=== PATIENT | male | born 1940 | race Caucasian/White ===

== ENCOUNTER → 2016-07-15 | Outpatient (CLI) | payer MEDICARE, BC ==
[~2016-07-15] MED LIST: ECOTRIN81 MG PO; LIPITOR40 MG PO; NUCYNTA50 MG PO; TYLENOL DPS325 MG PO
== END | disposition home or self-care (01) ==
LOC: PTH.S 12:14
DX: Z01.818 Encounter for other preprocedural examination (principal)

== ENCOUNTER 2016-07-20 05:36 | Inpatient (IN) | payer MEDICARE, BC ==
[~2016-07-20] VITALS: Ht 182.9 cm; Wt 85.1 kg
--- NOTE | ~2016-07-20 | OR ---
ADMIT: 07/20/2016 RM/LOC: 527 [facility] MR#: [id number] [address] [facility] [address] [place] [id number] [place] [address] [address] [address] Operative/Delivery Room Report SEX: M AGE: 76 : 1940 SURGERY DATE: 07/20/2016 SURGEON: Ashish Schroeder MD PREOPERATIVE DIAGNOSIS: Cecal cancer. POSTOPERATIVE DIAGNOSIS: Cecal cancer. FINAL PATHOLOGY: Pending. PROCEDURE: Laparoscopic right hemicolectomy. HALFTONE OPERATOR: Jacob Sanchez MD. Dr. Jacob Sanchez was necessary for adequate exposure, retraction, and completion of this case. ANESTHESIA: General endotracheal tube anesthesia. ESTIMATED BLOOD LOSS: 500 mL. INDICATION FOR PROCEDURE: Please see H and P. PROCEDURE IN DETAIL: After the risks, benefits, possible complications, and the alternatives had been explained, and informed consent had been obtained, the patient was taken back to the operating room, underwent general endotracheal tube anesthesia, and the surgical field was prepped and draped in a sterile manner. A supraumbilical incision was made. The Veress needle was inserted. The abdomen was insufflated with CO2. Once there was adequate insufflation, a 5-mm port was placed, camera was placed through this port site, then placed an infraumbilical 5 mm port, another upper midline 5 mm port and a 12 mm port on the left side. We first identified the ileocecal valve coming up and you could see where this cancer was kind located there, raised the ileocolic vessel up, made a window and got around it, identified duodenum nicely it was swept down, 2.5 load of the Endo RACHAEL stapler was placed across this and fired, and then nicely just kept working up underneath the colon in that bare area, and got that and we could see on the liver. Then, went on the transverse colon side, and started freeing things up, took the right branch of the middle colic vessel and then kept working hepatic flexure down, cecum up until we felt we had everything adequately freed up to be brought out. I grasped with one of the locking graspers, made a midline incision between the upper two ports, wound protector was placed, and the specimen was brought up. Somewhere in that process is where we ended up having some bleeding just from a torn vessel kind of right down on the transverse colon mesenteric. We ultimately clamped, divided, and ligated some of the mesenteric vessels freeing the small bowel and transverse colon. I created a [id number] stapled anastomosis using the RACHAEL stapler 75, stapled off with that stapler as well. Reinforced the crotch of the anastomosis in our suture line with some interrupted 4-0 GI silk sutures. Once that was all done, like I said, ADMIT: 07/20/2016 RM/LOC: 527 [facility] MR#: [id number] [address] [place] [id number] [place] [address] [place] [address] Operative/Delivery Room Report SEX: M AGE: 76 : 1940 returned the specimen to the abdominal cavity, removed the wound protector and closed after changing gloves with a couple of 0 PDS sutures. Then, when we re- insufflated the abdomen per camera and we have a lot of blood, lot more than we normally ever have and we kept cleaning that up, suctioning it up and found like I said earlier that there appears to be a small vessel along the transverse colon mesentery that I think bringing our specimen up and out tore and that is what was causing the bleeding and some issues there, but with a Harmonic Scalpel, we got everything cleaned out. I spent a fair amount of time to clean it out and really inspected it and watched it for a while. I was able to control with Harmonic Scalpel and seemed to do fine. Once that was done, I injected 0.5% Marcaine for pain control. Closed the large left- sided port site with an 0 Polysorb suture using the suture passer. All the rest the ports were removed and the skin was all closed with momo. He tolerated it well. He was extubated and taken to recovery room in stable and satisfactory condition. Ashish Schroeder MD/ akhil JOB #: [id number] CC: Ashish Schroeder, Attending Physician Johan Pavon, Family Physician
[2016-07-24] MEDS ORDERED: NUCYNTA50 MG PO (17:00)
[2016-07-24] MEDS ORDERED: LIPITOR40 MG PO (17:00)
[2016-07-24] MEDS ORDERED: ECOTRIN81 MG PO (17:00)
[2016-07-24] MEDS ORDERED: TYLENOL DPS325 MG PO (17:01)
--- NOTE | 2016-08-10 13:26 | HP ---
ADMIT: 07/20/2016 RM/LOC: W.04 [facility] MR#: [id number] [address] [id number] [place] [address] [place] [address] Pre-OP History and Physical SEX: M AGE: 76 : 1940 DATE OF SERVICE: PREOPERATIVE DIAGNOSIS: Cecal cancer. PLAN: Laparoscopic right hemicolectomy. 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 The plan is at this time is to proceed with a laparoscopic, possible open right hemicolectomy which I have discussed with him, what it entails, the risks, benefits, possible complications, and alternatives. He understands and wishes to proceed. PAST MEDICAL HISTORY: Significant for previous sigmoid colon cancer I believe back in which Dr. Coe did in an open fashion. Otherwise, his past medical history significant for some hyperlipidemia. He has had knee replacement, a sigmoid colon, he has had previous scopes, bilateral inguinal hernia repairs in a laparoscopic fashion. We did a CT scan that showed no evidence of significant disease within the liver. MEDICATIONS: Include: 1. Aspirin. 2. Lipitor. ALLERGIES: NO KNOWN DRUG ALLERGIES. SOCIAL HISTORY: He denies significant tobacco, alcohol, or illicit drugs. FAMILY HISTORY: Otherwise, noncontributory for any colon cancers that he tells me or knows about. ADMIT: 07/20/2016 RM/LOC: W.04 [facility] MR#: [id number] [address] [address] [address] [place] [address] Pre-OP History and Physical SEX: M AGE: 76 : 1940 REVIEW OF SYSTEMS: Otherwise essentially negative. PHYSICAL EXAMINATION: GENERA: He is alert and oriented. He is in no significant distress. HEENT: His sclerae are nonicteric. Extraocular muscles intact. CHEST: Clear anteriorly. HEART: Regular rate and rhythm without significant murmurs. ABDOMEN: Thin, soft. Well healed incisions. No masses or organomegaly detected. Positive bowel sounds. No hernias. ASSESSMENT AND PLAN: Laparoscopic, possible open right hemicolectomy. Ashish Schroeder MD/ akhil JOB #: [id number] CC: Ashish Schroeder, Attending Physician Johan Pavon, Family Physician
--- NOTE | 2016-08-10 13:26 | DS ---
ADMIT: 07/20/2016 RM/LOC: 527 [facility] MR#: [id number] 2620 [facility] [address] [place], [place] [id number] [address] [address] [address] [address] Discharge Summary SEX: M AGE: 76 : 1940 ADMISSION DATE: 07/20/2016 DISCHARGE DATE: 07/23/2016 ADMITTING DIAGNOSIS: Cecal cancer. DISMISSAL DIAGNOSES: 1. Cecal cancer, final pathology pending. 2. Previous sigmoid colon cancer. 3. Hyperlipidemia. 4. Previous knee replacement. 5. Previous bilateral inguinal hernia repairs. 6. Previous endoscopy. 7. Previous sigmoid colon resection. PROCEDURES: Laparoscopic right hemicolectomy. HOSPITAL COURSE: The patient was an inpatient admit with routine med/surg orders. After surgery, the patient transferred to the floor without any complications. He was given a morphine TUBE AND MANIFOLD BUILDER for pain control and was started on clears. Overall, the patient recovered well while in the hospital. He was weaned off his morphine TUBE AND MANIFOLD BUILDER and was tolerating oral pain medications. A Garrett that was placed intraoperatively was pulled on postop day #1. He had normal return of his bowel function and vitals began to stabilize. He did have some breakthrough pain to which the Lortabs did not suffice, but he tolerated Nucynta quite well. The patient continued to recover well and was discharged home on 07/23/2016. DISCHARGE INSTRUCTIONS: 1. Okay to shower. 2. No lifting greater than 20 pounds for 4 weeks. 3. Follow up with Dr. Schroeder on August 02. DISCHARGE MEDICATION LIST: 1. Aspirin 81 mg daily. 2. Atorvastatin 40 mg daily. 3. Nucynta 50 mg 1 tab q.4-6 hours p.r.n. 4. Acetaminophen 650 mg q.4 p.r.n. JEANIE Ceballos / Ashish Schroeder MD / ajf JOB #: [id number] CC: Ashish Schroeder MD, Attending Physician Johan Pavon MD, Family Physician
== END 2016-07-23 11:10 | disposition home or self-care (01) | DRG 331 ==
LOC: 5MS 05:36 → WOR 05:36 → 5MS 09:27
PROVIDERS: ADMIT Surgery
PROC: 0DTF0ZZ Resection of Right Large Intestine, Open Approach (ICD-10-PCS; principal; 2016-07-20)
DX: C18.0 Malignant neoplasm of cecum (principal); E78.5 Hyperlipidemia, unspecified; Z96.659 Presence of unspecified artificial knee joint; Z85.038 Personal history of other malignant neoplasm of large intestine

== ENCOUNTER → 2016-09-07 | Outpatient (CLI) | payer MEDICARE, BC | END | disposition home or self-care (01) | LOC: RAD.S 15:34 | DX: M79.662 Pain in left lower leg (principal); M79.89 Other specified soft tissue disorders; C18.7 Malignant neoplasm of sigmoid colon; I10 Essential (primary) hypertension ==